=== PATIENT | male | born 1955 | race American Indian/Alaskan Native ===

== ENCOUNTER 2018-11-19 08:03 | Day surgery (SDC) | payer BC ==
[2018-11-16 15:57] VITALS: BMI 25.8
[2018-11-19] MEDS ORDERED: Propofol 10 mg/ml Inj (20 ML) ONE (09:06)
[2018-11-19] MEDS ORDERED: Midazolam 2 MG/2 ML VIAL ONE (09:07)
[2018-11-19] MEDS ORDERED: Sodium Chloride 0.9% 1,000 ML IV SCH (10:45)
[2018-11-19 16:19] VITALS: BP 128/83; PULSE 70; RESP 18; TEMP 97.6; O2SAT 99
== END 2018-11-19 12:25 | disposition home or self-care (01) ==
LOC: ENDO 08:03
PROVIDERS: ATTEND Internal Medicine Gastroenterology
DX: Z12.11 Encounter for screening for malignant neoplasm of colon (principal); Q43.8 Other specified congenital malformations of intestine; K64.0 First degree hemorrhoids; Z86.010 Personal history of colon polyps; J45.909 Unspecified asthma, uncomplicated; I10 Essential (primary) hypertension; N40.0 Benign prostatic hyperplasia without lower urinary tract symptoms; Z79.82 Long term (current) use of aspirin
CPT/HCPCS: 45380; J2001; J2250; J2704; J7030; J7040